=== PATIENT | female | born 1985 | race Caucasian/White ===

== ENCOUNTER 2018-02-04 17:15 | Emergency (ER) | payer OTHER ==
[2018-02-04 18:35] LABS: HEMATOCRIT 41.6 % (42.0-52.0); HEMOGLOBIN 14.2 g/dl (13.5-17.5); MEAN CORPUSCULAR HEMOGLOBIN 31.2 pg (27.0-33.0); MEAN CORPUSCULAR HGB CONC 34.1 g/dl (32.0-36.5); MEAN CORPUSCULAR VOLUME 91.4 fl (80.0-96.0); PLATELET COUNT, AUTOMATED 308 10^3/uL (150-450); RED BLOOD COUNT 4.55 10^6/uL (4.30-6.10); RED CELL DISTRIBUTION WIDTH 12.7 % (11.5-14.5); WHITE BLOOD COUNT 5.4 10^3/uL (4.0-10.0)
[2018-02-04 18:54] LABS: ERYTHROCYTE SEDIMENTATION RATE 7 mm/hr (0-15)
[2018-02-04 18:58] LABS: C REACTIVE PROTEIN QUANTITATIV < 0.30 MG/DL (0.00-0.30)
== END 2018-02-04 20:13 | disposition home or self-care (01) ==
LOC: M ED 17:15
DX: L08.9 Local infection of the skin and subcutaneous tissue, unspecified (principal); Z88.1 Allergy status to other antibiotic agents
CPT/HCPCS: 86140

== ENCOUNTER → 2020-10-31 | Outpatient (REF) | payer BC, OTHER ==
[~2020-10-31] MED LIST: AMOX500C PO; BACT800T5 PO
== END ==
LOC: M LAB REF 17:03
PROVIDERS: ATTEND Physician Assistant
DX: N76.0 Acute vaginitis (principal)

== ENCOUNTER → 2020-12-22 | Outpatient (CLI) | payer BC | LOC: M LABSMTC 10:38 | PROVIDERS: ATTEND Anesthesiology | DX: Z01.812 Encounter for preprocedural laboratory examination (principal); Z20.822 Contact with and (suspected) exposure to COVID-19 ==

== ENCOUNTER 2020-12-27 09:47 | Day surgery (SDC) | payer BC ==
[~2020-12-27] VITALS: Ht 167.6 cm; Wt 67.8 kg
[~2020-12-27 09:47] MED LIST changes: +ADDE20CA3 PO; +LEVOTAB19 PO; +LIDOCAINE 2% 100MG/5ML SDV (FOR ANES.) As Ordered ONE; +LR 1,000 ML IV ONE; +MIDAZOLAM INJ 2MG/2ML VIAL (J2250 PER 1MG) As Ordered ONE; +ONDANSETRON 4MG/2ML VIAL As Ordered ONE; +PHENYLephrine 500MCG 5ML (100MCG/ML) SYRINGE As Ordered ONE; +ROCURONIUM BROMIDE 50 MG/5 ML VIAL As Ordered ONE; +SUGAMMADEX SODIUM 500 MG/5 ML VIAL (BRIDION) As Ordered ONE; +dexameTHASONE 4 MG/ML 1ML VIAL (J1100 PER 1MG) As Ordered ONE; +ePHEDrine SULFATE 25 MG/5 ML(5MG/ML) SYRINGE As Ordered ONE; +fentaNYL 100 MCG/2 ML INJECTION (J3010) As Ordered ONE; +propofoL 200 MG/20 ML VIAL As Ordered ONE
[2020-12-27] MEDS ORDERED: MULT-90 PO (10:08)
[2020-12-27] MEDS ORDERED: ACETAMINOPHEN 1000MG 100ML IV BTL (OFIRMEV) (J0131 PER 10MG) As Ordered ONE (11:02)
[2020-12-27] MEDS ORDERED: NORCO, ANEXSIA 5/325MG TABLET (HYDROcodone/ACETAMINOPHEN) PO PRN (12:00)
[2020-12-27] MEDS ORDERED: fentaNYL 100 MCG/2 ML INJECTION (J3010) IV PRN (12:00)
[2020-12-27] MEDS ORDERED: ONDANSETRON 4MG/2ML VIAL IV PRN (12:00)
[2020-12-27] MEDS ORDERED: HYDROMORPHONE HCL 0.5 MG/ 0.5 ML SYRINGE (J1170 PER 1) IV PRN (12:00)
[2020-12-27] MEDS ORDERED: IBUPROFEN 600MG TAB PO PRN (12:00)
[2020-12-27] MEDS ORDERED: oxyCODONE 5MG TAB PO PRN (12:00)
[2020-12-27] MEDS ORDERED: LR 1,000 ML IV SCH ×2 (12:00)
[2020-12-27 12:50] VITALS: BP 144/87
--- NOTE | 2020-12-28 11:04 | RO ---
OPERATIVE NOTE DATE OF OPERATION: 12/27/2020 PREOPERATIVE DIAGNOSIS AND INDICATIONS FOR SURGERY: Pain, bleeding. POSTOPERATIVE DIAGNOSIS: Pain, bleeding. PROCEDURE: 1. Dilatation and curettage with hysteroscopy. 2. NovaSure ablation. SURGEON: Audrey Orantes MD ANESTHESIA: General endotracheal anesthesia. ASSISTANTS: None. SPECIMENS: Endometrial curetting. BRIEF DESCRIPTION OF PROCEDURE AND FINDINGS: Corine was brought to the operating room where sufficient general anesthesia was induced. She was prepped and draped and positioned in the usual fashion. With the bladder emptied, a right-angled Russell was used for retraction because the Og was fairly snug at the introitus. We used the right-angled Mindy and grasped the cervix with a single-toothed tenaculum. The uterus sounded to 8.5 with a cervical length of 4, giving a cavity length of 4.5. We subsequently got with that 4.5 as well, but at this point, we just had length. We dilated the cervix in order to allow introduction of the hysteroscope and this was placed and the endometrial cavity visualized. A normal endometrial cavity contour was noted. The uterus was kind of retroverted, but mobile, so we did not have any trouble with the dilation. The openings to the tubal ostia were normal in appearance and there did not appear to be any polyps or other intrauterine anomalies. So, with a normal screen and confirmation that we had not perforated, we went ahead and dilated further in order to allow the NovaSure ablative device to be placed. After we placed it, we had length set at 4.5 as already noted and we measured width at 4.5. The cavity test assessment was passed successfully and then an uncomplicated NovaSure ablation was carried out and the procedure then ended. ESTIMATED BLOOD LOSS: None. She did not really bleed. FLUID REPLACEMENT: Crystalloid. COMPLICATIONS: None. CONDITION AND DISPOSITION: Corine tolerated the procedure well and was recovering in the recovery room in good condition.
== END 2020-12-27 12:58 | disposition home or self-care (01) ==
LOC: M SDC 09:47
PROVIDERS: ATTEND Obstetrics & Gynecology
DX: R10.2 Pelvic and perineal pain (principal); N93.9 Abnormal uterine and vaginal bleeding, unspecified; K21.9 Gastro-esophageal reflux disease without esophagitis; Z79.899 Other long term (current) drug therapy
CPT/HCPCS: 58563; 81025; 88305; J0131; J1100; J2250; J2370; J2405; J3010

== ENCOUNTER → 2021-07-11 | Outpatient (REF) | payer BC ==
[~2021-07-11] MED LIST changes: -LIDOCAINE 2% 100MG/5ML SDV (FOR ANES.) As Ordered ONE; -LR 1,000 ML IV ONE; -MIDAZOLAM INJ 2MG/2ML VIAL (J2250 PER 1MG) As Ordered ONE; +MULT-90 PO; -ONDANSETRON 4MG/2ML VIAL As Ordered ONE; -PHENYLephrine 500MCG 5ML (100MCG/ML) SYRINGE As Ordered ONE; -ROCURONIUM BROMIDE 50 MG/5 ML VIAL As Ordered ONE; -SUGAMMADEX SODIUM 500 MG/5 ML VIAL (BRIDION) As Ordered ONE; -dexameTHASONE 4 MG/ML 1ML VIAL (J1100 PER 1MG) As Ordered ONE; -ePHEDrine SULFATE 25 MG/5 ML(5MG/ML) SYRINGE As Ordered ONE; -fentaNYL 100 MCG/2 ML INJECTION (J3010) As Ordered ONE; -propofoL 200 MG/20 ML VIAL As Ordered ONE
== END ==
LOC: M LAB REF 12:39
PROVIDERS: ATTEND Physician Assistant
DX: J00 Acute nasopharyngitis [common cold] (principal)

== ENCOUNTER → 2022-07-22 | Outpatient (CLI) | payer BC ==
[2022-07-22 13:44] LABS: BASO % 0.6 % (0.0-1.0); EOS # 0.1 10^3/uL (0.0-0.5); EOS % 1.4 % (0.0-3.0); HEMATOCRIT 40.5 % (36.0-47.0); HEMOGLOBIN 13.5 g/dl (12.0-15.5); LYMPH # 1.8 10^3/uL (1.5-5.0); LYMPH % 28.9 % (24.0-44.0); MEAN CORPUSCULAR HEMOGLOBIN 31.8 pg (27.0-33.0); MEAN CORPUSCULAR HGB CONC 33.3 g/dl (32.0-36.5); MEAN CORPUSCULAR VOLUME 95.5 fl (80.0-96.0); MONO # 0.5 10^3/uL (0.0-0.8); MONO % 7.4 % (2.0-8.0); NEUTROPHILS # 3.9 10^3/uL (1.5-8.5); NEUTROPHILS % 61.5 % (36.0-66.0); PLATELET COUNT, AUTOMATED 270 10^3/uL (150-450); RED BLOOD COUNT 4.24 10^6/uL (4.00-5.40); WHITE BLOOD COUNT 6.3 10^3/uL (4.0-10.0)
[2022-07-22 14:20] LABS: HEMOGLOBIN A1c 5.2 %
[2022-07-22 14:38] LABS: ALBUMIN 3.6 GM/DL (3.2-5.2); ALT/SGPT 20 U/L (12-78); BILIRUBIN,TOTAL 0.9 MG/DL (0.2-1.0); BLOOD UREA NITROGEN 12 MG/DL (7-18); CALCIUM LEVEL 8.8 MG/DL (8.5-10.1); CARBON DIOXIDE LEVEL 30 MEQ/L (21-32); CHLORIDE LEVEL 104 MEQ/L (98-107); CHOLESTEROL LEVEL 152 MG/DL (<200); CHOLESTEROL RISK RATIO 1.974 (<5); CREATININE FOR GFR 0.82 MG/DL (0.55-1.30); FREE T4 0.96 NG/DL (0.76-1.46); GLOMERULAR FILTRATION RATE > 60.0 (>60); GLUCOSE, FASTING 82 MG/DL (70-100); HDL CHOLESTEROL 77 MG/DL (>40); LDL CHOLESTEROL 64 MG/DL (<100); NON-HDL-C 75 MG/DL; POTASSIUM SERUM 4.2 MEQ/L (3.5-5.1); SODIUM LEVEL 139 MEQ/L (136-145); TOTAL PROTEIN 6.3 GM/DL (6.4-8.2); TRIGLYCERIDES LEVEL 54 MG/DL (<150)
[2022-07-22 17:26] LABS: TOTAL 25(OH) VITAMIN D 59.1 NG/ML (30.0-100.0)
== END ==
LOC: M LABDRWAD 07:39
PROVIDERS: ATTEND Physician Assistant
DX: Z13.29 Encounter for screening for other suspected endocrine disorder (principal); Z13.220 Encounter for screening for lipoid disorders

== ENCOUNTER → 2025-08-01 | Outpatient (CLI) | payer OTHER | LOC: M LAB 13:34 | PROVIDERS: ATTEND Physician Assistant Medical | DX: B02.9 Zoster without complications (principal); Z53.9 Procedure and treatment not carried out, unspecified reason ==